=== PATIENT | female | born 1950 | race Caucasian/White ===

== ENCOUNTER 2018-11-06 16:50 | Emergency (ER) | payer MEDICARE, BC ==
[~2018-11-06] VITALS: Ht 172.7 cm; Wt 90.9 kg
[2018-11-06] MEDS ORDERED: ATOR1TAB19 PO (16:55)
--- NOTE | 2018-11-06 19:29 | REP ---
REASON: Pain after a fall. Degenerative changes are seen throughout the foot. There is a tranverse fracture involving the base of the 5th metatarsal. There is a plantar calcaneal heel spur. IMPRESSION 5th metatarsal fracture. Electronically Signed by Dominick Sánchez DO 11/06/2018 07:38 P
[2018-11-06] MEDS ORDERED: KETOROLAC 60 MG/2 ML VIAL (J1885) IM ONE (19:30)
--- NOTE | 2018-11-06 19:30 | REP ---
REASON: Facial pain after trauma. Plain film examination of the facial bones is limited compared to CT. Although this plain film examination shows no evidence of a gross fracture. A subtle fracture could be obscured and for this CT is recommended. Electronically Signed by Dominick Sánchez DO 11/06/2018 07:39 P
--- NOTE | 2018-11-06 19:31 | REP ---
Four views of the left ankle were obtained and show previously described fracture of the base of the 5th metatarsal. Plantar and retrocalcaneal heel spurs are present. There are no additional fractures. IMPRESSION:Findings as described above. See foot report. Four views of the right ankle were obtained were obtained and show a distal fibular fracture with an intact mortise. Plantar and retrocalcaneal heel spurs are present. No additional acute fractures are noted. IMPRESSION: Distal fibular fracture. Electronically Signed by Dominick Sánchez DO 11/06/2018 07:39 P
--- NOTE | 2018-11-06 19:33 | REP ---
HISTORY: Pain after trauma. COMPARISON: None. There is a very subtle cortical irregularity seen in the region of the triquetral on the lateral view only. This is seen in conjunction with evidence of soft tissue swelling. The examination is otherwise within normal limits. IMPRESSION: Possible triquetral fracture. Electronically Signed by Dominick Sánchez DO 11/06/2018 07:41 P
--- NOTE | 2018-11-06 21:12 | REPVR ---
EXAM: CT Maxillofacial Without Contrast EXAM DATE/TIME: 11/06/2018 8:05 PM CLINICAL HISTORY: 68 years old, female; Injury or trauma; Fall; Initial encounter; Blunt trauma (contusions or hematomas); Orbit/periorbital; Left; Additional info: Fall, hematoma above left eye TECHNIQUE: Imaging protocol: Computed tomography images of the face without contrast. Coronal and sagittal reformatted images were created and reviewed. Radiation optimization: All CT scans at this facility use at least one of these dose optimization techniques: automated exposure control; mA and/or kV adjustment per patient size (includes targeted exams where dose is matched to clinical indication); or iterative reconstruction. COMPARISON: CR Facial Bones 11/06/2018 5:52 PM FINDINGS: Orbits: Orbits are normal. Globes are unremarkable. Sinuses: Normal. No air-fluid levels. Bones/joints: There is no fracture of the orbits or zygomatic arches. There is no fracture of the nasal bones. The nasal septum is deviated to the right. There is no fracture of the sinuses. There is no fracture of the maxilla or mandible. Soft tissues: There is left frontal soft tissue swelling. IMPRESSION: No fracture. Electronically signed by: Brent Cuadra On 11/06/2018 21:11:53 PM
--- NOTE | 2018-11-06 21:16 | REPVR ---
EXAM: CT Left Upper Extremity Without Contrast, Wrist EXAM DATE/TIME: 11/06/2018 8:05 PM CLINICAL HISTORY: 68 years old, female; Injury or trauma; Fall; Initial encounter; Blunt trauma (contusions or hematomas; Wrist; Left; Additional info: Fall, hematoma above left eye TECHNIQUE: Imaging protocol: CT of the Left upper extremity without contrast was performed. Exam focused on the wrist. Coronal and sagittal reformatted images were created and reviewed. Radiation optimization: All CT scans at this facility use at least one of these dose optimization techniques: automated exposure control; mA and/or kV adjustment per patient size (includes targeted exams where dose is matched to clinical indication); or iterative reconstruction. COMPARISON: CR Wrist, complete LEFT 11/06/2018 5:52 PM FINDINGS: Bones/joints: There is no fracture of the distal radius or ulna. There is no fracture the carpal bones. Specifically, the triquetrum is intact. The bases of the metacarpals are intact. The there is no dislocation. Soft tissues: Normal. IMPRESSION: No fracture. Electronically signed by: Brent Cuadra On 11/06/2018 21:15:32 PM
[2018-11-06] MEDS ORDERED: NORCO, ANEXSIA 5/325MG TABLET (HYDROcodone/ACETAMINOPHEN) PO ONE (21:45)
[2018-11-06] MEDS ORDERED: NORC1TAB7 PO (21:57)
[2018-11-06] MEDS ORDERED: KETO10TAB PO (21:57)
[2018-11-06 22:05] VITALS: BP 155/75
[2018-11-06] MEDS ORDERED: NORCO 5/325MG TABLET (BULK FOR ED) PO ONE (22:15)
[2018-11-06] MEDS ORDERED: MEDI-453 MC (22:15)
[2018-11-07] MEDS ORDERED: KETO10TAB PO (09:00)
[2018-11-07] MEDS ORDERED: NORC1TAB7 PO (09:00)
== END 2018-11-06 22:20 | disposition home or self-care (01) ==
LOC: M ED 16:50
DX: S00.81XA Abrasion of other part of head, initial encounter (principal); S93.401A Sprain of unspecified ligament of right ankle, initial encounter; S93.402A Sprain of unspecified ligament of left ankle, initial encounter; S63.502A Unspecified sprain of left wrist, initial encounter; S36.220A Contusion of head of pancreas, initial encounter; S92.355A Nondisplaced fracture of fifth metatarsal bone, left foot, initial encounter for closed fracture; S82.401A Unspecified fracture of shaft of right fibula, initial encounter for closed fracture; M77.32 Calcaneal spur, left foot; W18.40XA Slipping, tripping and stumbling without falling, unspecified, initial encounter; Y92.099 Unspecified place in other non-institutional residence as the place of occurrence of the external cause; Y93.9 Activity, unspecified; Y99.9 Unspecified external cause status; E78.5 Hyperlipidemia, unspecified
CPT/HCPCS: 29515; 70150; 70486; 73110; 73200; 73610; 73630; 80047; 96374; 99283; J1885